=== PATIENT | female | born 1975 | race African-American/Black ===

== ENCOUNTER 2017-01-25 21:11 | Emergency (ER) | payer OTHER ==
--- NOTE | ~2017-01-25 | CR72 ---
[facility] A Service of [facility] RADIOLOGY TEXT RESULTS PATIENT: NING HERRERA LOCATION: CFTX : 79 UNIT #: [id number] AGE: [address]: Jacqueline Dyer APRN SEX: F ORDER DR: [id number] [facility] [address] [place], [place] [address] [id number] E MR#: [id number] Acc #: [id number] NAME: NING HERRERA : 1975 SEX: F STUDY DATE/TIME: 01/25/2017 22:15 UNIT: [facility] ROOM: STUDY DESCRIPTION: CR Chest Single View Portable Attending Physician: Jacqueline Dyer A.P.R.N. Ordering Physician: Jacqueline Dyer A.P.R.N. Primary Care Physician: [facility], [facility]. MEDICAL IMAGING REPORT This report is preliminary unless electronic signature is present EXAM Portable chest. HISTORY Cough, fever and weakness, and shortness of air today. FINDINGS A single AP portable view of the chest shows both lungs to be clear. The heart is normal in size. The mediastinal contour is normal. No significant bone abnormalities are seen. IMPRESSION Normal portable chest. Dictated by... Rafael Diaz M.D. THIS IS AN ELECTRONICALLY VERIFIED REPORT Rafael Diaz M.D. at 01/26/2017 11:06 PM FROILAN/jennifer TD: 01/25/2017 23:01 JOB #: [id number] MEDICAL IMAGING REPORT Page 1 of 1 COPY
[~2017-01-25 21:11] MED LIST: ANTIVERT PO; BACTRIM DS TABL1 TA1 PO; BENTYL20 MG PO; ERYTHROMYCIN250 M1 PO; FLAGYL250 M1 PO; IBUPROFEN PO; IBUPROFEN800 MG PO; NAPROSYN500 MG PO; NASAL DECONGEST30 MG; NO MEDICATIONS; PHENERGAN PO; PHENERGAN25 MG PO; ROBITUSSIN A-C-S1 ML PO; TYLENOL #3 PO; ULTRAM PO; VICODIN 5/1 TAB 5/50 PO; VICODIN 5/500 T1 TAB PO; VICODIN PO; ZANTAC150 MG PO; ZITHROMAX PO
[2017-01-25 21:51] LABS: INFLUENZA A NEG (NEG)
[2017-01-25 21:52] LABS: INFLUENZA B NEG (NEG)
[2017-01-25 22:28] LABS: URINE SOURCE CLEAN CATCH
[2017-01-25 22:36] LABS: URINE APPEARANCE CLEAR; URINE BILIRUBIN NEG (NEG); URINE BLOOD NEG (NEG); URINE COLOR DK YELLOW; URINE GLUCOSE NEG (NEG); URINE KETONE TRACE (NEG); URINE LEUKOCYTE ESTERASE NEG (NEG); URINE NITRATE NEG (NEG); URINE PH 5.5 (5-8); URINE PROTEIN NEG (NEG)
[2017-01-25 22:39] LABS: CULTURE INDICATED? NO
== END 2017-01-25 23:00 | disposition home or self-care (01) ==
LOC: CFTX 21:11 → CED 21:11 → CFTX 21:52
PROVIDERS: Nurse Practitioner
DX: J06.9 Acute upper respiratory infection, unspecified (principal); H66.92 Otitis media, unspecified, left ear; I10 Essential (primary) hypertension; Z90.49 Acquired absence of other specified parts of digestive tract; F17.210 Nicotine dependence, cigarettes, uncomplicated
CPT/HCPCS: 71010; 81003; 84703; 87651; 87804; 99284